=== PATIENT | male | born 1970 | race American Indian/Alaskan Native ===

== ENCOUNTER 2017-01-27 12:42 | Emergency (ER) | payer OTHER ==
[2017-01-27 14:01] LABS: Basophils % (Auto) 1.3 % (0.0-1.8); Eosinophils % (Auto) 2.7 % (0.0-4.3); Hematocrit 42.9 % (35.5-45.6); Hemoglobin 14.5 gm/dl (11.8-15.2); Mean Corpuscular HGB Conc 34 % (32-34); Mean Corpuscular Hemoglobin 31 pg (28-32); Mean Corpuscular Volume 91 fl (84-94); Platelet Count 272 K/mm3 (140-440); Red Blood Count 4.72 M/mm3 (3.65-5.03); Red Cell Distribution Width 15.2 % (13.2-15.2); White Blood Count 4.9 K/mm3 (4.5-11.0)
[2017-01-27 14:20] LABS: Alanine Aminotransferase 23 units/L (7-56); Albumin 4.5 g/dL (3.9-5); Albumin/Globulin Ratio 1.3 %; Alkaline Phosphatase 60 units/L (35-129); Anion Gap 19 mmol/L; BUN/Creatinine Ratio 13.33; Blood Urea Nitrogen 8 mg/dL (9-20); Calcium 8.7 mg/dL (8.4-10.2); Carbon Dioxide 23 mmol/L (22-30); Chloride 102.7 mmol/L (98-107); Glucose 86 mg/dL (75-100); Lipase 84 units/L (13-60); Potassium 3.9 mmol/L (3.6-5.0); Sodium 141 mmol/L (137-145); Total Protein 7.9 g/dL (6.3-8.2)
[2017-01-27 14:48] LABS: Bilirubin,Urine NEG (Negative); Blood,Urine NEG (Negative); Ketones,Urine NEG (Negative); Leukocyte Esterase,Urine NEG (Negative); Mucus,Urine FEW /HPF; Nitrite,Urine NEG (Negative); Protein,Urine <15 mg/dL mg/dL (Negative); Urobilinogen,Urine < 2.0 mg/dL (<2.0); WBC,Urine < 1.0 /HPF (0.0-6.0)
[2017-01-27] MEDS ORDERED: ZOFRAN IV ONE (20:44)
[2017-01-27] MEDS ORDERED: NACL 0.9% 500 ML 500 ML IV ONE (20:44)
[2017-01-27] MEDS ORDERED: APRESOLINE IV ONE (20:44)
--- NOTE | 2017-01-27 20:51 | Emergency Department Report ---
HPI - General Chief Complaint: Abdominal Pain Time Seen by Provider: 01/27/17 20:14 - HPI HPI: This is a 46-year-old Afro-[place] Citizen male who presents to the emergency department after driving himself in to be seen with complaint of a 3 to four- day history of "I'm just not feeling well." He says that overall his legs feel heavy and is been having some intermittent headaches. He admits to some nausea with one episode of vomiting each morning. He currently has some mid to lower abdominal discomfort. He denies any fever, chest pain, shortness of breath, problems with bowel or bladder, numbness or paresthesias or any neurological deficits. He did not take anything for symptoms prior to presentation. He also presents with some elevated and/or uncontrolled blood pressure but admits to medication noncompliance for the past month. He has a primary care doctor but has not seen them regarding his symptoms and does not currently members her name as he is only seen on one time previously. No recent travel or sick contacts at home. ED Past Medical Hx - Past Medical History Hx Hypertension: Yes (NONCOMPLIANT WITH MEDS) Hx Arthritis: Yes Additional medical history: Left knee pain - Surgical History Additional Surgical History: "surgery to stop snoring", Oral surgery - Social History Smoking Status: Current Every Day Smoker Substance Use Type: Alcohol, Marijuana - Medications Home Medications: Home Medications Medication Instructions Recorded Confirmed Last Taken Type Ondansetron [Zofran Odt] 4 mg PO Q8H PRN #10 tab.rapdis 01/27/17 Unknown Rx amLODIPine [Norvasc] 5 mg PO DAILY #30 tab 01/27/17 Unknown Rx ED Review of Systems ROS: Stated complaint: NAUSEA Other details as noted in HPI Comment: All other systems reviewed and negative Constitutional: denies: chills, fever Eyes: denies: eye pain, eye discharge, vision change ENT: denies: ear pain, throat pain Respiratory: denies: cough, shortness of breath, wheezing Cardiovascular: denies: chest pain, palpitations Gastrointestinal: abdominal pain, nausea, vomiting Genitourinary: denies: urgency, dysuria Musculoskeletal: denies: back pain, joint swelling, arthralgia Skin: denies: rash, lesions Neurological: headache. denies: numbness, paresthesias Physical Exam - Physical Exam Vital Signs: Vital Signs 01/27/17 01/27/17 01/27/17 13:40 19:21 19:35 Temperature 98.1 F Pulse Rate 109 H 100 H Respiratory 17 16 16 Rate Blood Pressure 150/98 Blood Pressure 158/86 [Left] O2 Sat by Pulse 98 100 Oximetry Physical Exam: GENERAL: The patient is well-developed well-nourished. HEENT: Normocephalic. Atraumatic. Extraocular motions are intact. Patient has moist mucous membranes. Pupils equal reactive to light bilaterally. NECK: Supple. Trachea is midline. CHEST/LUNGS: Clear to auscultation. There is no respiratory distress noted. HEART/CARDIOVASCULAR: Regular. There is no tachycardia. There is no gallop rub or murmur. ABDOMEN: Abdomen is soft. Mild tenderness to palpation to the lower quadrants of the abdomen. No guarding rebound tenderness. No peritoneal signs. Patient has normal bowel sounds. There is no abdominal distention. SKIN: Skin is warm and dry. NEURO: The patient is awake, alert, and oriented. The patient is cooperative. The patient has no focal neurologic deficits. The patient has normal speech. MUSCULOSKELETAL: There is no tenderness or deformity. There is no limitation range of motion. There is no evidence of acute injury. ED Course Vital Signs 01/27/17 01/27/17 01/27/17 13:40 19:21 19:35 Temperature 98.1 F Pulse Rate 109 H 100 H Respiratory 17 16 16 Rate Blood Pressure 150/98 Blood Pressure 158/86 [Left] O2 Sat by Pulse 98 100 Oximetry ED Medical Decision Making - Lab Data Result diagrams: 01/27/17 13:46 01/27/17 13:46 - Radiology Data Radiology results: image reviewed interpreted by me: Abdominal x-ray shows nonspecific nonobstructive bowel gas. - Medical Decision Making 46-year-old male presents with a few days of some abdominal pain, nausea, vomiting and some just generalized feelings of feeling ill. Patient's labs are mostly unremarkable. There is no leukocytosis, electrolyte abnormalities, renal insufficiency, glucose abnormalities. He has normal LFTs and bilirubin but does have slightly elevated lipase. However this most likely is secondary to the nausea and vomiting. Patient does not have any upper abdominal discomfort and no peritoneal signs. Abdominal x-ray does not show any acute process. He was given some IV fluid, Zofran. He was given some hydralazine for blood pressure and it came down to a more reasonable level. Upon reevaluation the patient says he is feeling much better. Vital signs stable including being afebrile. Patient has a primary care doctor for follow-up. He was discharged home with some amlodipine for his blood pressure and Zofran for nausea and vomiting and encouraged to follow up with primary care and return to the ER with any worsening of symptoms or any acute distress. - Differential Diagnosis gastroenteritis, colitis, diverticulitis, pancreatitis Critical Care Time: No Critical care attestation.: If time is entered above; I have spent that time in minutes in the direct care of this critically ill patient, excluding procedure time. ED Disposition Clinical Impression: Noncompliance with medication regimen Hypertension Qualifiers: Hypertension type: essential hypertension Qualified Code(s): I10 - Essential ( primary) hypertension Nausea & vomiting Qualifiers: Vomiting type: unspecified Vomiting Intractability: non-intractable Qualified Code(s): R11.2 - Nausea with vomiting, unspecified Abdominal pain Qualifiers: Abdominal location: unspecified location Qualified Code(s): R10.9 - Unspecified abdominal pain Disposition: DISCHARGED TO HOME OR SELFCARE Is pt being admited?: No Condition: Stable Instructions: Acute Nausea and Vomiting (ED), Abdominal Pain (ED), Hypertension (ED) Additional Instructions: Please follow-up with your primary care doctor in the next few days. Increase your oral rehydration. Return to the emergency department with any worsening of your symptoms or any acute distress. I have started you on a blood pressure medication: Norvasc, to be taken once daily. Keep a blood pressure log. Try to stay away from foods that are high in salt and caffeinated products to help with your elevated blood pressure. Prescriptions: amLODIPine [Norvasc] 5 mg PO DAILY #30 tab Ondansetron [Zofran Odt] 4 mg PO Q8H PRN #10 tab.rapdis PRN Reason: Nausea Referrals: PRIMARY CARE, [Primary Care Provider] - 3-5 Days Forms: Work/School Release Form(ED) Time of Disposition: 22:16
[2017-01-27] MEDS ORDERED: NORMODYNE IV ONE (21:47)
[2017-01-27 22:26] VITALS: BP 148/88
--- NOTE | 2017-01-28 09:53 | XRay Report ---
ABDOMEN, 2 views: History: Abdominal pain. There is no evidence of free air beneath the diaphragms. The gas pattern within the abdomen is unremarkable. There is no evidence of bowel dilatation, significant air-fluid levels, or pathologic calcifications. Organ shadows are unremarkable. IMPRESSION: Unremarkable abdomen.
== END 2017-01-27 22:26 | disposition home or self-care (01) ==
LOC: ED 12:42
DX: R10.30 Lower abdominal pain, unspecified (principal); R11.2 Nausea with vomiting, unspecified; I10 Essential (primary) hypertension; Z91.14 Patient's other noncompliance with medication regimen; M19.90 Unspecified osteoarthritis, unspecified site; F12.10 Cannabis abuse, uncomplicated; F17.200 Nicotine dependence, unspecified, uncomplicated
CPT/HCPCS: 36415; 74020; 80053; 81001; 83690; 85025; 96374; 96375; 99284; J0360; J2405; J7040

== ENCOUNTER 2017-10-18 17:33 | Emergency (ER) | payer OTHER ==
[2017-10-18] MEDS ORDERED: ASPIRIN PO ONE (18:28)
[2017-10-18 19:22] LABS: Basophils # (Auto) 0.1 K/mm3 (0.0-0.1); Basophils % (Auto) 0.9 % (0.0-1.8); Eosinophils % (Auto) 0.3 % (0.0-4.3); Hematocrit 46.9 % (35.5-45.6); Hemoglobin 15.9 gm/dl (11.8-15.2); Lymphocytes # (Auto) 1.6 K/mm3 (1.2-5.4); Lymphocytes % (Auto) 18.7 % (13.4-35.0); Mean Corpuscular HGB Conc 34 % (32-34); Mean Corpuscular Hemoglobin 30 pg (28-32); Mean Corpuscular Volume 89 fl (84-94); Monocytes # (Auto) 0.9 K/mm3 (0.0-0.8); Monocytes % (Auto) 9.8 % (0.0-7.3); Platelet Count 285 K/mm3 (140-440); Red Blood Count 5.28 M/mm3 (3.65-5.03); Red Cell Distribution Width 13.9 % (13.2-15.2)
[2017-10-18 19:43] LABS: BUN/Creatinine Ratio 13; Blood Urea Nitrogen 9 mg/dL (9-20); Calcium 9.3 mg/dL (8.4-10.2); Hemolysis Index 4
[2017-10-18] MEDS ORDERED: ZOFRAN ODT PO ONE (21:44)
[2017-10-18] MEDS ORDERED: CATAPRES PO ONE (21:44)
[2017-10-18 22:41] VITALS: BP 151/101
--- NOTE | 2017-10-18 22:50 | Cat Scan Report ---
FINAL REPORT PROCEDURE: CT HEAD/BRAIN WO CON TECHNIQUE: Computerized tomography of the head was performed without contrast material. HISTORY: headache htn COMPARISON: No prior studies are available for comparison. FINDINGS: There is no CT evidence of intracranial mass, hemorrhage, acute territorial infarction, or hydrocephalus. The intracranial arteries are symmetric in density. There are air-fluid levels within bilateral maxillary sinuses. There is bilateral ethmoid sinus and maxillary sinus mucosal thickening. The mastoids are well aerated. The calvarium is intact. IMPRESSION: No CT evidence of acute intracranial abnormality. Sinusitis
== END 2017-10-19 00:30 | disposition left against medical advice (07) ==
LOC: ED 17:33
DX: R09.81 Nasal congestion (principal); R51 Headache; I10 Essential (primary) hypertension; Z53.21 Procedure and treatment not carried out due to patient leaving prior to being seen by health care provider
CPT/HCPCS: 36415; 70450; 80048; 84484; 85025; 93005; 93010; Q0162

== ENCOUNTER 2017-10-19 14:12 | Emergency (ER) | payer SELFPAY ==
[2017-10-19 14:41] VITALS: BP 197/115
[2017-10-19 15:23] LABS: Basophils # (Auto) 0.1 K/mm3 (0.0-0.1); Basophils % (Auto) 0.9 % (0.0-1.8); Eosinophils % (Auto) 0.3 % (0.0-4.3); Hematocrit 49.1 % (35.5-45.6); Hemoglobin 16.5 gm/dl (11.8-15.2); Lymphocytes # (Auto) 1.3 K/mm3 (1.2-5.4); Lymphocytes % (Auto) 15.4 % (13.4-35.0); Mean Corpuscular HGB Conc 34 % (32-34); Mean Corpuscular Hemoglobin 30 pg (28-32); Mean Corpuscular Volume 89 fl (84-94); Monocytes # (Auto) 0.8 K/mm3 (0.0-0.8); Monocytes % (Auto) 9.6 % (0.0-7.3); Platelet Count 268 K/mm3 (140-440); Red Blood Count 5.49 M/mm3 (3.65-5.03); Red Cell Distribution Width 13.5 % (13.2-15.2)
[2017-10-19 15:42] LABS: BUN/Creatinine Ratio 11; Blood Urea Nitrogen 8 mg/dL (9-20); Calcium 10.1 mg/dL (8.4-10.2); Hemolysis Index 8
== END 2017-10-19 21:40 | disposition left against medical advice (07) ==
LOC: ED 14:12
DX: Z53.21 Procedure and treatment not carried out due to patient leaving prior to being seen by health care provider (principal)
CPT/HCPCS: 36415; 80048; 84484; 85025; 93005; 93010

== ENCOUNTER 2017-11-23 19:46 | Emergency (ER) | payer SELFPAY ==
[2017-11-23] MEDS ORDERED: ASPIRIN PO ONE (20:07)
[2017-11-23] MEDS ORDERED: CATAPRES PO ONE (20:07)
[2017-11-23 20:21] LABS: Basophils # (Auto) 0.1 K/mm3 (0.0-0.1); Eosinophils # (Auto) 0.1 K/mm3 (0.0-0.4); Hemoglobin 14.6 gm/dl (11.8-15.2); Lymphocytes # (Auto) 1.5 K/mm3 (1.2-5.4); Lymphocytes % (Auto) 22.3 % (13.4-35.0); Mean Corpuscular HGB Conc 33 % (32-34); Mean Corpuscular Hemoglobin 30 pg (28-32); Mean Corpuscular Volume 91 fl (84-94); Monocytes # (Auto) 0.9 K/mm3 (0.0-0.8); Monocytes % (Auto) 14.1 % (0.0-7.3); Platelet Count 280 K/mm3 (140-440); Red Blood Count 4.83 M/mm3 (3.65-5.03); Red Cell Distribution Width 14.9 % (13.2-15.2)
[2017-11-23 20:31] LABS: BUN/Creatinine Ratio 7; Blood Urea Nitrogen 4 mg/dL (9-20); Calcium 9.2 mg/dL (8.4-10.2); Hemolysis Index 4
[2017-11-23] MEDS ORDERED: ZESTRIL ONE (22:11)
[2017-11-23] MEDS ORDERED: ZESTRIL PO ONE (22:59)
[2017-11-23 23:01] VITALS: BP 175/108
== END 2017-11-23 23:00 | disposition left against medical advice (07) ==
LOC: ED 19:46
DX: R06.02 Shortness of breath (principal); R05 Cough; R07.9 Chest pain, unspecified; Z53.21 Procedure and treatment not carried out due to patient leaving prior to being seen by health care provider
CPT/HCPCS: 36415; 80048; 84484; 85025; 93005; 93010

== ENCOUNTER 2020-08-22 07:50 | Emergency (ER) | payer BC ==
[2020-08-22 08:12] VITALS: BP 136/90
[2020-08-22 08:55] LABS: Hematocrit 47.5 % (35.5-45.6); Mean Corpuscular HGB Conc 34 % (32-34); Mean Corpuscular Volume 93 fl (84-94); Platelet Count 266 K/mm3 (140-440); Red Blood Count 5.14 M/mm3 (3.65-5.03); Red Cell Distribution Width 13.6 % (13.2-15.2)
[2020-08-22 08:59] LABS: Basophils # (Auto) 0.1 K/mm3 (0.0-0.1); Basophils % (Auto) 1.3 % (0.0-1.8); Eosinophils # (Auto) 0.2 K/mm3 (0.0-0.4); Eosinophils % (Auto) 3.8 % (0.0-4.3); Lymphocytes # (Auto) 1.3 K/mm3 (1.2-5.4); Lymphocytes % (Auto) 28.2 % (13.4-35.0); Monocytes # (Auto) 0.7 K/mm3 (0.0-0.8)
[2020-08-22 09:12] LABS: Alanine Aminotransferase 26 units/L (7-56); Albumin 4.5 g/dL (3.9-5); BUN/Creatinine Ratio 19; Blood Urea Nitrogen 17 mg/dL (9-20); Calcium 9.8 mg/dL (8.4-10.2); Hemolysis Index 15
--- NOTE | 2020-08-22 11:53 | Emergency Department Report ---
ED General Adult HPI - General Chief complaint: Headache Stated complaint: HEADACHE/PATRICIA ARM PAIN/TIGHTNESS Time Seen by Provider: 08/22/20 10:34 Source: patient Mode of arrival: Ambulatory Limitations: No Limitations - History of Present Illness Initial comments: Patient is 50 years old pleasant male with history of nicotine and alcohol dependence. Patient presented to the ER complaining of headache and twitching of his arm that happened yesterday. Patient stated that he is fine now and he does not have any symptoms at this moment however he was really scared yesterday when he had his symptoms. Patient also describes an event that happened 1-1/2 weeks ago when he found himself on the floor passed out. Patient stated that he tried to quit smoking and his primary care physician is starting him on Wellbutrin approximately 2 weeks ago. He also stated that he tried to quit drinking and he did not drink any alcohol for the last 3 days. Patient currently denying any headache, neck pain, chest pain, shortness of breath, abdominal pain, nausea or vomiting. No focal weakness numbness or tingling sensation. - Related Data Previous Rx's Medication Instructions Recorded Last Taken Type Losartan [Cozaar] 100 mg PO QDAY #30 tablet 03/30/20 Unknown Rx Nicotine [Habitrol] 14 mg TD QDAY #21 patch 03/30/20 Unknown Rx amLODIPine 5 mg PO DAILY #30 tablet 03/30/20 Unknown Rx Allergies Allergy/AdvReac Type Severity Reaction Status Date / Time No Known Allergies Allergy Verified 10/19/17 14:39 ED Review of Systems ROS: Stated complaint: HEADACHE/PATRICIA ARM PAIN/TIGHTNESS Other details as noted in HPI Comment: All other systems reviewed and negative Constitutional: denies: chills, fever Respiratory: denies: cough, shortness of breath, SOB with exertion, SOB at rest Cardiovascular: denies: chest pain Gastrointestinal: denies: abdominal pain, nausea, vomiting Musculoskeletal: denies: back pain Neurological: headache. denies: weakness, numbness, paresthesias, confusion, abnormal gait ED Past Medical Hx - Past Medical History Previous Medical History?: Yes Hx Hypertension: Yes (NONCOMPLIANT WITH MEDS) Hx Congestive Heart Failure: No Hx Diabetes: No Hx Arthritis: Yes Hx Asthma: No Hx COPD: No Additional medical history: Left knee pain - Surgical History Additional Surgical History: "surgery to stop snoring", Oral surgery - Social History Smoking Status: Light Tobacco Smoker - Medications Home Medications: Home Medications Medication Instructions Recorded Confirmed Last Taken Type Losartan [Cozaar] 100 mg PO QDAY #30 tablet 03/30/20 Unknown Rx Nicotine [Habitrol] 14 mg TD QDAY #21 patch 03/30/20 Unknown Rx amLODIPine 5 mg PO DAILY #30 tablet 03/30/20 Unknown Rx ED Physical Exam - General Limitations: No Limitations General appearance: alert, in no apparent distress - Head Head exam: Present: atraumatic, normocephalic, normal inspection - Eye Eye exam: Present: normal appearance, PERRL - ENT ENT exam: Present: normal exam, normal orophraynx, mucous membranes moist - Neck Neck exam: Present: normal inspection, full ROM. Absent: tenderness, meningismus, lymphadenopathy, thyromegaly - Respiratory Respiratory exam: Present: normal lung sounds bilaterally - Cardiovascular Cardiovascular Exam: Present: regular rate, normal rhythm, normal heart sounds - GI/Abdominal GI/Abdominal exam: Present: soft, normal bowel sounds. Absent: distended, tenderness, guarding, rebound, rigid, organomegaly, mass, bruit, pulsatile mass, hernia - Extremities Exam Extremities exam: Present: normal inspection, full ROM, normal capillary refill. Absent: pedal edema, calf tenderness - Back Exam Back exam: Present: normal inspection, full ROM. Absent: CVA tenderness (R), CVA tenderness (L) - Neurological Exam Neurological exam: Present: alert, oriented X3, CN II-XII intact, normal gait, reflexes normal. Absent: motor sensory deficit - Psychiatric Psychiatric exam: Present: normal mood - Skin Skin exam: Present: warm, intact, normal color ED Course Vital Signs 08/22/20 08:09 Temperature 98.0 F Pulse Rate 90 Respiratory 20 Rate Blood Pressure 136/90 O2 Sat by Pulse 99 Oximetry ED Medical Decision Making - Lab Data Result diagrams: 08/22/20 08:27 08/22/20 08:28 - Medical Decision Making Patient is 50 years old pleasant male with history of nicotine and alcohol dependence. Patient presented to the ER complaining of headache and twitching of his arm that happened yesterday. Patient stated that he is fine now and he does not have any symptoms at this moment however he was really scared yesterday when he had his symptoms. Patient also describes an event that happened 1-1/2 weeks ago when he found himself on the floor passed out. Patient stated that he tried to quit smoking and his primary care physician is starting him on Wellbutrin approximately 2 weeks ago. He also stated that he tried to quit d rinking and he did not drink any alcohol for the last 3 days. Patient currently denying any headache, neck pain, chest pain, shortness of breath, abdominal pain, nausea or vomiting. No focal weakness numbness or tingling sensation. Labs reviewed and is unremarkable. I reviewed patient previous medical record here patient had multiple CT brain this year and it all came back negative. I believe patient symptom is most likely seizure either from Wellbutrin or from his alcohol withdrawal. I started the patient on Librium and I gave him resources to follow-up with for outpatient alcohol detox. Critical care attestation.: If time is entered above; I have spent that time in minutes in the direct care of this critically ill patient, excluding procedure time. ED Disposition Clinical Impression: Headache, Seizure-like activity, Alcohol withdrawal seizure Disposition: DC-01 TO HOME OR SELFCARE Is pt being admited?: No Condition: Stable Instructions: Alcohol Withdrawal Syndrome, [id number] Referrals: JEFF CAMERON MD [Primary Care Provider] - 3-5 Days
== END 2020-08-22 12:29 | disposition home or self-care (01) ==
LOC: ED 07:50
DX: R51.9 Headache, unspecified (principal); G40.909 Epilepsy, unspecified, not intractable, without status epilepticus; I10 Essential (primary) hypertension; M19.90 Unspecified osteoarthritis, unspecified site; F17.200 Nicotine dependence, unspecified, uncomplicated; Z79.899 Other long term (current) drug therapy
CPT/HCPCS: 36415; 80053; 82550; 83735; 85007; 85025; 93005; 99283